=== PATIENT | male | born 1960 | race Caucasian/White ===

== ENCOUNTER 2024-06-04 07:46 | Day surgery (SDC) | payer OTHER ==
[~2024-06-04] VITALS: Ht 177.8 cm; Wt 113.9 kg
[~2024-06-04 07:46] MED LIST: ALLO10TA PO; D-20TAB PO; ECOT81TA5 PO; FARX1TAB3 PO; GLUC1TAB6 PO; INDO50CA91 PO; KRIL1000 PO; METF500T13 PO; NEXI20CA PO
[2024-06-04 10:52] VITALS: TEMP 97.2
[2024-06-04 11:12] VITALS: BP 144/71; O2SAT 97
== END 2024-06-04 11:18 | disposition home or self-care (01) ==
LOC: M OPP 07:46
PROVIDERS: ATTEND Surgery
DX: Z12.11 Encounter for screening for malignant neoplasm of colon (principal); K57.30 Diverticulosis of large intestine without perforation or abscess without bleeding; K64.0 First degree hemorrhoids; G47.30 Sleep apnea, unspecified; Z88.8 Allergy status to other drugs, medicaments and biological substances; Z79.82 Long term (current) use of aspirin; Z79.84 Long term (current) use of oral hypoglycemic drugs; Z79.899 Other long term (current) drug therapy